=== PATIENT | female | born 1970 | race Caucasian/White ===

== ENCOUNTER 2025-09-11 10:30 | Outpatient (AMB) | payer OTHER, SELFPAY ==
--- NOTE | 2025-09-11 10:32 | A.OFFPC_ITS ---
Vital Signs 09/11/25 10:51 Height 5 ft 3.78 in Weight 220 lb 8 oz BMI 38.1 BP 116/73 Blood Pressure Location Lt brachial Position Sitting Respiration 16 Pulse 71 Pulse Source Pulse Oximeter Temp 98.1 F Temp Source Oral Pulse Oximetry (%) 94 Oxygen Delivery Method Room Air Intake Visit Reasons: Counseling Psychologist/ Diabetes FU Allergies acetaminophen (From NyQuil) Allergy (Mild, Verified 09/11/25 10:53) Hives dextromethorphan (From NyQuil) Allergy (Mild, Verified 09/11/25 10:53) Hives doxylamine (From NyQuil) Allergy (Mild, Verified 09/11/25 10:53) Hives Penicillins Allergy (Mild, Verified 09/11/25 10:53) Swelling pseudoephedrine (From NyQuil) Allergy (Mild, Verified 09/11/25 10:53) Hives Medication List - Last Reconciled 09/11/25 by Leonides Heard MD acetaminophen ER (Tylenol Arthritis Pain) 650 mg PO Q8H atorvastatin (Lipitor) 40 mg PO DAILY benztropine 1.5 mg PO DAILY capsaicin 0.025% 1 appl topical BID cholecalciferol (vitamin D3) 50 mcg PO DAILY diclofenac sodium 1% (Arthritis Pain (diclofenac)) 2 grams topical QID duloxetine 30 mg PO DAILY levothyroxine 112 mcg PO DAILY metformin 1,000 mg PO BID paliperidone palmitate (Invega Sustenna) 234 mg IM QMONTH topiramate XR 50 mg PO BID Tobacco use date assessed: 09/11/25 Dental Screening Dental Screen Date: 09/11/25 Did you have a dental visit in the last 12 months?: Yes Did you have a dental problem in the last 6 months where you did not have access to dental care?: Yes Was dental information given to patient?: No HPI HPI Comments History of Present Illness Details History of Present Illness The patient is a 55-year-old female presenting to establish care and for chronic disease management. Bipolar Disorder: The patient has a history of bipolar disorder for over 10 years and is managed by a psychiatrist. She has been on Invega for 10 years, and the dose was recently increased in July due to a controllable breakdown. She received her first injection of the new dose, paliperidone 156 mg IM extended-release, on August 26. Her benztropine dose was also increased to manage side effects of muscle issues and imbalance from the higher Invega dose. Type 2 Diabetes Mellitus: The patient has a history of type 2 diabetes mellitus and impaired glucose tolerance. She is taking metformin 500 mg extended release. Her last lab work w as done two months ago, but her last hemoglobin A1c is unknown. Hypothyroidism: The patient has a history of hypothyroidism and is treated with levothyroxine 100 mcg. Chronic Pain: The patient has chronic pain, including bilateral knee pain and low back pain. She is managed with acetaminophen, duloxetine 30 mg, capsaicin topical cream, and a lidocaine topical patch. Forgetfulness: The patient reports developing forgetfulness starting about three months ago. She is aware of her memory issues, which is noted as a good prognostic sign. This symptom onset coincides with recent changes in her psychiatric medications. Gastrointestinal Issues: She experiences occasional constipation, which is managed with Miralax as needed. She also takes Metamucil. Urinary Incontinence: The patient reports having a weak bladder and urinary incontinence. Medications: - Acetaminophen 1000 mg every 8 hours - Atorvastatin 40 mg - Benztropine 1 mg - Capsaicin topical cream - Cholecalciferol 50 mcg for Vitamin D d eficiency - Duloxetine 30 mg - Paliperidone (Invega) 156 mg intramusc ular suspension, extended release, for bipolar disorder - Levothyroxine 100 mcg for hypothyroidi sm - Lidocaine topical patch - Losartan 25 mg - Metformin 500 mg extended release for type 2 diabetes mellitus - Miralax (as needed for constipation) - Metamucil - Topiramate 50 mg oral Social History: - Substance Use: The patient reports smo eamon cannabis. - She denies any use of other illicit [place] bstances such as crack, cocaine, or PCP. - Sexual History: The patient is not sex ually active. - Living Situation: The patient resides with her daughter, who serves as her primary caregiver and advocate during medical visits. - They reside in the [facility]. Diagnostic Results: - Mammogram: Performed in June, with n ormal results. - Colonoscopy: Last performed in 2018. - Labs: Last performed approximately two months ago in July; specific results were not discussed. Past Medical History - Bipolar disorder, diagnosed over 10 ye ars ago - Chronic kidney disease - Type 2 diabetes mellitus - Hypothyroidism - Impaired glucose tolerance - Chronic bilateral knee pain - Chronic low back pain - Celiac disease - Obesity - Urinary incontinence - Vitamin D deficiency - Menopause: Last menstrual period was f our years ago. Health Maintenance - Cervical cancer screening: A Pap smear is due as the last one was of an unknown date. - Colon cancer screening: Last colonosco py was in 2019. - Breast cancer screening: Last mammogra m was in June, with normal results. - Sexually transmitted infections: Julia garcia was offered but declined as the patient is not sexually active. [facility] Medical History (Updated 09/11/25 @ 11:47 by Leonides Heard MD) Chronic kidney disease Celiac disease Vitamin D3 deficiency Menopause Cannabis use disorder Urinary incontinence Schizophrenia Bipolar 1 disorder Constipation Forgetfulness Bilateral knee pain Chronic lower back pain Hypothyroidism (acquired) Diabetes type 2 Family History (Updated 09/11/25 @ 11:05 by Frandy Wick MA) Father High blood pressure Diabetes Alzheimer disease Hypothyroidism Heart problem Mother High blood pressure Diabetes Alzheimer disease Social History Housing: House Patient Tobacco Use Status: Never used Tobacco service: No Current occupational status: retired Cognitive needs: Yes Hearing needs: No Vision needs: Yes (rx glasses) Questionnaire PHQ-9 Over the last 2 weeks, how often have you been bothered by any of the following problems? 1. Little interest or pleasure in doing things: not at all 2. Feeling down, depressed, or hopeless: not at all 3. Trouble falling or staying asleep, or sleeping too much: not at all 4. Feeling tired or having little energy: not at all 5. Poor appetite or overeating: not at all 6. Feeling bad about yourself - or that you are a failure or have let yourself or your family down: not at all 7. Trouble concentrating on things, such as reading the newspaper or watching television: not at all 8. Moving or speaking so slowly that other people could have noticed. Or the opposite - being so fidgety or restless that you have been moving around a lot more than usual: not at all 9. Thoughts that you would be better off or of hurting yourself in some way: not at all Total score: 0 Depression Screening Interpretation: Negative Depression Screening Done: Yes Source: Developed by Drs. Saul Davalos, Julissa Foster, Mike Alatorre and colleagues, with an educational yoel from [employer]. Thrive Questionnaire Date Thrive assessed: 09/11/25 I am a: Patient What is your living situation today?: I have a steady place to live Do you have trouble paying for medicines?: No Do you have trouble getting transportation to medical appointments?: No Do you have trouble paying your heating and electricity bill?: No Do you have trouble taking care of your child, family member or friend?: No Do you have trouble with day-to-day activities such as bathing, preparing meals, shopping, managing finances, etc.?: No Are you currently unemployed and looking for a job?: No Are you interested in more education?: No Please select the resources that you would like help with: None THRIVE Score: 0 AUDIT C Alcohol Use Questionnaire (AUDIT-C) 1. How often do you have a drink containing alcohol?: Never Total Score: 0 RICHMOND-7 AMB Questionnaire RICHMOND-7 Date RICHMOND - 7 assessed: 09/11/25 Feeling nervous, anxious, or on edge: 0 = Not at all Not being able to stop or control worryin = Not at all Worrying too much about different things: 0 = Not at all Trouble relaxin = Not at all Being so restless that it is hard to sit still: 0 = Not at all Becoming easily annoyed or irritable: 0 = Not at all Feeling afraid as if something awful might happen: 0 = Not at all Total RICHMOND-7 score (0-4 normal; 5-9 mild; 10-14 moderate; 15-21 severe): 0 Source: Developed by Drs. Saul Davalos, Mike Pan and colleagues, with an educational yoel from [employer]. Review of Systems Narrative Review of Systems - Constitutional: Reports sedation and sleepiness, attributed to medications. - Neurological: Reports forgetfulness that began three months ago and unsteadiness. - Psychiatric: Reports history of a psychiatric breakdown. - Musculoskeletal: Reports bilateral knee pain and low back pain. - Genitourinary: Reports a weak bladder and urinary incontinence. - Gynecological: Reports amenorrhea for the past 4 years. - Gastrointestinal: Reports intermittent constipation. 10-point ROS reviewed and negative except as noted in HPI Physical exam (Primary Care) Vital Signs: Last Vital Signs Temp 98.1 F 09/11/25 10:51 Pulse 71 09/11/25 10:51 Resp 16 09/11/25 10:51 BP 116/73 09/11/25 10:51 Pulse Ox 94 09/11/25 10:51 Oxygen Delivery Method Room Air 09/11/25 10:51 BMI result Body Mass Index 38.1 Tobacco/Smoking Status: Tobacco use Status Tobacco use date assessed 09/11/25 09/11/25 10:37 Patient Tobacco Use Status Never used Tobacco 09/11/25 10:37 PHQ-9: PHQ-9 Score PHQ-9: Total score 0 09/11/25 10:37 Depression Screening Interpretation: Negative Thrive Assessment: Date of Thrive Assessment Date Thrive assessed 09/11/25 09/11/25 10:37 Narrative Physical Exam General: Well-appearing, in no acute distress. Vital signs: Within normal limits. HEENT: Normocephalic, atraumatic. PERRLA, EOMI. Conjunctiva clear, sclera anicteric. Oropharynx clear, mucous membranes moist. TMs intact bilaterally. Neck: Supple, no lymphadenopathy, no thyromegaly, no JVD or carotid bruits. Cardiovascular: RRR, normal S1/S2, no murmurs, rubs, or gallops. Peripheral pulses 2+ and symmetric. No edema. Respiratory: Lungs clear to auscultation bilaterally, no wheezes, rales, or rhonchi. Normal effort. Abdomen: Soft, non-tender, non-distended. Normoactive bowel sounds. No hepatosplenomegaly, no masses. MSK: Full range of motion, no joint swelling or deformity. Normal gait. Skin: Warm, dry, intact. No rashes, lesions, or pallor. Neuro: Alert and oriented x3. Cranial nerves II-XII intact. Strength 5/5 throughout. Sensation intact. Reflexes 2+ symmetric. Normal coordination and gait. Psych: Appropriate mood and affect. Normal judgment and insight. Coding Level of Care Code New Pt Level 4 (77898) Diagnoses Diabetes type 2 E11.9 Hypothyroidism (acquired) E03.9 Chronic lower back pain M54.50; G89.29 Bilateral knee pain M25.561; M25.562 Forgetfulness R68.89 Constipation K59.00 Bipolar 1 disorder F31.9 Schizophrenia F20.9 Urinary incontinence R32 Cannabis use disorder F12.90 Menopause Z78.0 Vitamin D3 deficiency E55.9 Celiac disease K90.0 Chronic kidney disease N18.9 Assessment & Plan Assessment & Plan (1) Diabetes type 2: Code(s): E11.9 - Type 2 diabetes mellitus without complications Category: Medical (2) Hypothyroidism (acquired): Code(s): E03.9 - Hypothyroidism, unspecified Category: Medical (3) Chronic lower back pain: Code(s): M54.50 - Low back pain, unspecified; G89.29 - Other chronic pain Category: Medical (4) Bilateral knee pain: Code(s): M25.561 - Pain in right knee; M25.562 - Pain in left knee Category: Medical (5) Forgetfulness: Code(s): R68.89 - Other general symptoms and signs Category: Medical (6) Constipation: Code(s): K59.00 - Constipation, unspecified Category: Medical (7) Bipolar 1 disorder: Code(s): F31.9 - Bipolar disorder, unspecified Category: Medical (8) Schizophrenia: Code(s): F20.9 - Schizophrenia, unspecified Category: Medical (9) Urinary incontinence: Code(s): R32 - Unspecified urinary incontinence Category: Medical (10) Cannabis use disorder: Code(s): F12.90 - Cannabis use, unspecified, uncomplicated Category: Medical (11) Menopause: Code(s): Z78.0 - Asymptomatic menopausal state Category: Medical (12) Vitamin D3 deficiency: Code(s): E55.9 - Vitamin D deficiency, unspecified Category: Medical (13) Celiac disease: Code(s): K90.0 - Celiac disease Category: Medical (14) Chronic kidney disease: Code(s): N18.9 - Chronic kidney disease, unspecified Category: Medical Plan Consent The plan to perform comprehensive bloodwork was discussed with the patient and her daughter, who acted as her historian. They verbally agreed to proceed with the diagnostic testing. Patient was informed and verbally consented to the use of an ambient scribe for clinic note documentation during this visit. Plan 1. Establishment Of Care / Chronic Disease Management - Obtain a comprehensive panel of labs to establish a baseline, including a complete blood count, comprehensive metabolic panel, urinalysis, thyroid panel, hemoglobin A1c, lipid panel, vitamin B12, folate, and vitamin D. - Schedule a follow-up appointment in two weeks to review lab results and formulate a long-term management plan. 2. Forgetfulness - The symptom is currently attributed to recent psychiatric medication changes. - Ordered lab work includes thyroid function tests and vitamin levels to rule out organic causes. - Defer further neurological workup at this time, pending lab results and a period of observation for medication adjustment. 3. Cervical Cancer Screening - Plan to arrange for a Pap smear as the patient is overdue for screening. Discussion Notes I discussed with the patient and her daughter, who served as the primary historian for the visit, that the initial goal is to establish a comprehensive understanding of her current health status. I explained the rationale for ordering a full panel of blood tests and a urinalysis, which will help assess her kidney and liver function, diabetes control, thyroid status, cholesterol levels, and check for any vitamin deficiencies. We addressed her concern about forgetfulness, and I explained that it is likely a side effect of her recent psychiatric medication changes. I advised that we should first rule out other reversible causes with the ordered labs before considering further workup, and that it's good she is aware of the issue. I also highlighted the need for health maintenance, specifically a Pap smear for cervical cancer screening, as she is overdue. I recommended a follow-up visit in two weeks to review all of the results and develop a clear plan moving forward. Patient Instructions - Please go to the lab to have your blood drawn for the tests we discussed. - We need to schedule a Pap smear for your routine cancer screening. - Continue taking all your current medications as prescribed by your other doctors. - Please return to the clinic in two weeks to discuss your lab results and next steps. Medical Decision Making The patient is a 55-year-old female with a complex past medical history including bipolar disorder, type 2 diabetes, hypothyroidism, chronic kidney disease, and chronic pain, who presents with her daughter to establish care. The history was provided primarily by her daughter due to the patient's sedation, which is likely a side effect of a recent increase in her Invega dose for bipolar disorder. Given that this is an initial visit for a patient with multiple, actively managed chronic conditions, a comprehensive baseline assessment is crucial. A broad panel of labs was ordered to evaluate the status of her known conditions (HgbA1c, CMP, thyroid panel) and to screen for potential complications or contributing factors to her new symptom of forgetfulness (CBC, vitamin levels). The patient's new onset of forgetfulness over the last three months is most likely attributable to the recent titration of her psychotropic medications, particularly Invega. However, it is important to rule out common organic causes such as hypothyroidism or vitamin deficiencies before attributing it solely to medication effects. Therefore, a watchful waiting approach combined with laboratory investigation is appropriate at this time. Preventative care was also addressed, and a Pap smear is indicated as she is overdue for cervical cancer screening. The plan is to follow up in two weeks to review all results, which will guide further diagnostic and therapeutic decisions. Total time spent caring for the patient today was 30 minutes. This includes time spent before the visit reviewing the chart, time spent documenting, and time spent reviewing laboratory results, diagnostic imaging, medications, performing a medically necessary evaluation, counseling on diagnoses, care coordination Orders: Orders Comprehensive Met. Panel Today Z.9 - Encounter for screening, unspecified Hemoglobin A1c Today Z13.9 - Encounter for screening, unspecified HIV Ab/Ag Today Z13.9 - Encounter for screening, unspecified Vitamin D 1,25 dihydroxy Today Z13.9 - Encounter for screening, unspecified Complete Blood Count Auto Diff Today Z13.9 - Encounter for screening, unspecified Hepatitis B Surface Antibody Today Z13.9 - Encounter for screening, unspecified Hepatitis B Surface Antigen Today Z13.9 - Encounter for screening, unspecified Hepatitis C Antibody Today Z13.9 - Encounter for screening, unspecified Lipid Panel Today Z13.9 - Encounter for screening, unspecified Magnesium Today Z13.9 - Encounter for screening, unspecified Vitamin B12 and Folate Today Z13.9 - Encounter for screening, unspecified UA CC w/rflx Micro + Cult Today Z13.9 - Encounter for screening, unspecified TSH reflex Free T4 Today Z13.9 - Encounter for screening, unspecified
[2025-09-11 10:51] VITALS: BP 116/73; PULSE 71; RESP 16; TEMP 36.7; O2SAT 94; BMI 38.1
== END 2025-09-11 11:07 | disposition home or self-care (01) ==
LOC: HO.HMCFMS 10:30
PROVIDERS: Visit Provider Student in an Organized Health Care Education/Training Program
DX: E11.9 Type 2 diabetes mellitus without complications (principal); E03.9 Hypothyroidism, unspecified; M54.50 Low back pain, unspecified; G89.29 Other chronic pain; M25.561 Pain in right knee; M25.562 Pain in left knee; R68.89 Other general symptoms and signs; K59.00 Constipation, unspecified; F31.9 Bipolar disorder, unspecified; F20.9 Schizophrenia, unspecified; R32 Unspecified urinary incontinence; F12.90 Cannabis use, unspecified, uncomplicated; Z78.0 Asymptomatic menopausal state; E55.9 Vitamin D deficiency, unspecified; K90.0 Celiac disease; N18.9 Chronic kidney disease, unspecified

== ENCOUNTER → 2025-09-11 10:30 | Outpatient (BNVA) | payer OTHER, SELFPAY | PROVIDERS: Visit Provider Student in an Organized Health Care Education/Training Program | DX: E11.22 Type 2 diabetes mellitus with diabetic chronic kidney disease (principal); N18.9 Chronic kidney disease, unspecified; F31.9 Bipolar disorder, unspecified; E03.9 Hypothyroidism, unspecified; M25.561 Pain in right knee; M25.562 Pain in left knee; M54.50 Low back pain, unspecified; R32 Unspecified urinary incontinence; F12.90 Cannabis use, unspecified, uncomplicated; R68.89 Other general symptoms and signs; K59.00 Constipation, unspecified; F20.9 Schizophrenia, unspecified; Z78.0 Asymptomatic menopausal state; E55.9 Vitamin D deficiency, unspecified; K90.0 Celiac disease | CPT/HCPCS: 96127; 99202 ==

== ENCOUNTER 2025-09-12 09:16 | Outpatient (REF) | payer OTHER, SELFPAY ==
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
[2025-09-12 13:33] LABS: MANUAL DIFF FLAG NO
[2025-09-12 13:44] LABS: Hematocrit 41.6 % (37.0-47.0); Hemoglobin 13.4 g/dl (12.0-16.0); Imm Gran Abs Auto 0.04 X10*3/uL (0.00-0.03); Imm Gran Pct Auto 0.4 % (0.0-0.4); Lymphocytes Absolute Auto 3.4 X10*3/uL (1.2-4.9); Mean Corpuscular HGB Conc 32.2 g/dl (31.0-35.0); Mean Corpuscular Hemoglobin 30.1 pg (27.0-33.0); Mean Corpuscular Volume 93.5 fL (80.0-98.0); NRBC Abs Auto 0.000 X10*3/uL (0.0-0.012); NRBC Pct Auto 0.0 /100WBC (0.0-0.2); Platelet Count 287 X10*3/uL (160-400); Red Blood Count 4.45 X10*6/uL (4.20-5.50); White Blood Count 9.6 X10*3/uL (4.8-10.8)
[2025-09-12 14:19] LABS: Alanine Aminotransferase 23 U/L (0-31); Albumin Level 4.2 g/dL (3.5-5.0); Alkaline Phosphatase 75 U/L (39-117); Anion Gap 7 (12-20); Aspartate Amino Transferase 26 U/L (5-31); Blood Urea Nitrogen 18 mg/dL (9-16); Calcium 9.3 mg/dL (8.4-10.2); Carbon Dioxide 27 mmol/L (22-29); Chloride 113 mmol/L (96-108); Cholesterol 149 mg/dL (<200); Estimated Glomerular Filt Rate 53; HDL Cholesterol 36 mg/dL (>40); Magnesium 1.8 mg/dL (1.6-2.6); Potassium 3.9 mmol/L (3.3-5.1); Sodium 143 mmol/L (135-145); Total Protein 7.2 g/dL (6.5-8.0); Triglycerides 106 mg/dL (<150)
[2025-09-12 14:32] LABS: Folate 6.2 ng/mL (> or = 4.0); Vitamin B12 306 pg/mL (200-900)
[2025-09-13 08:12] LABS: HBS Num1 17.52 mIU/mL (0-7.99); HBsAGNum1 0.41 S/CO (0.00-0.99); HIV Num 1 0.10 S/CO (0.00-0.99); Hepatitis B Surface Antigen Negative (Negative); ~HepC Num1 0.07 S/CO (0.00-0.79); ~Hepatitis B Surface Antibody REACTIVE (Nonreactive); ~Hepatitis C Antibody Nonreactive (Nonreactive)
[2025-09-17 15:24] LABS: VITAMIN D (1,25 OH) D3 33 pg/mL; Vit D (1,25-Dihydroxy) Total 33 pg/mL (18-72); Vitamin D (1,25 OH) D2 <8 pg/mL
== END 2025-09-12 09:17 | disposition home or self-care (01) ==
LOC: HO.HKASLDS 09:16
PROVIDERS: PCP Student in an Organized Health Care Education/Training Program; Visit Provider Student in an Organized Health Care Education/Training Program
DX: Z11.4 Encounter for screening for human immunodeficiency virus [HIV] (principal); Z13.29 Encounter for screening for other suspected endocrine disorder; Z13.1 Encounter for screening for diabetes mellitus; Z13.6 Encounter for screening for cardiovascular disorders; Z13.89 Encounter for screening for other disorder
CPT/HCPCS: 36415; 80053; 80061; 82607; 82652; 82746; 83036; 83735; 84443; 85025; 86706; 86803; 87340; 87389

== ENCOUNTER 2025-09-26 09:56 | Outpatient (AMB) | payer OTHER, SELFPAY ==
[2025-09-26 10:05] VITALS: BP 130/70; PULSE 86; RESP 16; TEMP 36.6; BMI 38.3
--- NOTE | 2025-09-26 10:05 | MHC.PC.OV ---
Vital Signs 09/26/25 10:05 Height 5 ft 3.78 in Weight 221 lb 8 oz BMI 38.3 BP 130/70 Blood Pressure Location Rt brachial Position Sitting Respiration 16 Pulse 86 Temp 97.8 F Temp Source Oral Intake Visit Reasons: 2 wk f/u - lab review Allergies acetaminophen (From NyQuil) Allergy (Mild, Verified 09/26/25 10:06) Hives dextromethorphan (From NyQuil) Allergy (Mild, Verified 09/26/25 10:06) Hives doxylamine (From NyQuil) Allergy (Mild, Verified 09/26/25 10:06) Hives Penicillins Allergy (Mild, Verified 09/26/25 10:06) Swelling pseudoephedrine (From NyQuil) Allergy (Mild, Verified 09/26/25 10:06) Hives Tobacco use date assessed: 09/11/25 Dental Screening Dental Screen Date: 09/11/25 HPI HPI Comments History of Present Illness Details History of Present Illness The patient is a 55-year-old female presenting for a review of lab results and evaluation of a new-onset burning sensation in the left leg. Peripheral Neuropathy: The patient reports a burning sensation in her left knee and leg that started approximately one week ago. The sensation is painful with light touch, such as from paper or fingers, but does not hurt with deeper pressure. She denies any changes in her daily activities that could have precipitated this symptom. Prediabetes: The patient is on metformin 1000 mg twice a day. Her recent hemoglobin A1c was 5.9%, placing her in the prediabetic range. Schizophrenia: The patient has a history of schizophrenia and is managed by a psychiatrist named Sue. She has been on Invega since 2008, and the dose was recently increased. She also takes benztropine for extrapyramidal symptoms associated with her antipsychotic medication. She reportedly experiences drowsiness as a side effect. Migraine: The patient experienced stress-induced migraines around August of this year following the passing of her mother. Her psychiatrist prescribed topiramate, which she started in August for migraine prophylaxis. She is reportedly no longer experiencing migraines. Chronic Kidney Disease, Stage Unspecified: Recent lab results indicate that the patient's kidneys are functioning at a slightly slow rate. Surgical History: - No prior surgeries were mentioned in the conversation. Medications: - Acetaminophen ER for arthritis pain - Atorvastatin 40 mg for hyperlipidemia - Benztropine 1.5 mg for extrapyramidal symptoms - Vitamin D supplementation - Diclofenac for arthritis pain - Duloxetine - Levothyroxine - Metformin 1000 mg twice a day for prediabetes - Invega (paliperidone) for schizophrenia - Topiramate XR 50 mg for migraine prevention Social History: - The patient's mother in July/August of this year, which was identified as a significant recent stressor. - The patient's daughter accompanied her to the appointment. - The patient expressed a desire to donate plasma for financial reasons. - Regarding nutrition, the patient reports eating a lot of chicken and uses an air fryer. Family History: - Mother: Diagnostic Results: - CBC: White blood cells, red blood cells, hemoglobin, hematocrit, and platelets are normal. - Comprehensive Metabolic Panel: Sodium and potassium are normal. Kidney function is noted to be slightly slow. Liver function and magnesium levels are normal. - Glucose, Random: 104 mg/dL - Hemoglobin A1c: 5.9% - Lipid Panel: Triglycerides 106 mg/dL, total cholesterol 149 mg/dL, LDL 92 mg/dL, HDL 36 mg/dL. - Vitamin B12: Normal - Vitamin D: Normal - Folate: Normal - Thyroid function tests: Normal - Hepatitis B, Hepatitis C, and HIV screens: Negative Past Medical History - Schizophrenia, managed with Invega since 2008 - Prediabetes, managed with metformin - Hyperlipidemia, managed with atorvastatin - Hypothyroidism, managed with levothyroxine - Arthritis, managed with acetaminophen and diclofenac - History of stress-induced migraines Health Maintenance - Lab Monitoring: Comprehensive labs were reviewed, showing prediabetes, mildly reduced kidney function, and mixed hyperlipidemia with low HDL. - Dietary Counseling: Advised to reduce carbohydrate intake (e.g., white rice, bread, cookies) and increase consumption of greens, beans, and lean proteins to manage prediabetes and improve HDL cholesterol. - Medication Safety: Counseled to avoid nephrotoxic NSAIDs (e.g., ibuprofen, meloxicam) due to mildly slow kidney function and to use Tylenol for pain as a safer alternative. - Risk Reduction: Patient was cleared to donate plasma if she chooses to do so. [facility] Medical History (Updated 09/26/25 @ 11:02 by Leonides Heard MD) Migraine Peripheral neuropathy Chronic kidney disease Celiac disease Vitamin D3 deficiency Menopause Cannabis use disorder Urinary incontinence Schizophrenia Bipolar 1 disorder Constipation Forgetfulness Bilateral knee pain Chronic lower back pain Hypothyroidism (acquired) Diabetes type 2 Family History (Updated 09/11/25 @ 11:05 by Frandy Wick MA) Father High blood pressure Diabetes Alzheimer disease Hypothyroidism Heart problem Mother High blood pressure Diabetes Alzheimer disease Social History Housing: House Patient Tobacco Use Status: Never used Tobacco service: No Current occupational status: retired Cognitive needs: Yes Hearing needs: No Vision needs: Yes (rx glasses) Questionnaire Thrive Questionnaire Date Thrive assessed: 09/11/25 I am a: Patient What is your living situation today?: I have a steady place to live Within the past 12 months, did the food you bought not last and you didn't have the money to get more?: Never true Within the past 12 months, did you worry whether your food would run out before you got money to buy more?: Never true Do you have trouble paying for medicines?: No Do you have trouble getting transportation to medical appointments?: No Do you have trouble paying your heating and electricity bill?: Yes Do you have trouble taking care of your child, family member or friend?: I choose not to answer this question Are you currently unemployed and looking for a job?: Yes Are you interested in more education?: No Please select the resources that you would like help with: Utilities Currently or been in a relationship where the following occur: No concerns reported THRIVE Score: 1 RICHMOND-7 AMB Questionnaire RICHMOND-7 Date RICHMOND - 7 assessed: 09/11/25 Source: Developed by Drs. Saul Davalos, Julissa Foster, Mike Alatorre and colleagues, with an educational yoel from [employer]. Review of Systems Narrative Review of Systems - Constitutional: Reports feeling drowsy. - Neurological: Reports a burning sensation in the left knee and leg for the past week, which is painful with light touch. Denies forgetfulness today. - Musculoskeletal: Reports arthritis pain. 10-point ROS reviewed and negative except as noted in HPI Physical exam (Primary Care) Vital Signs: Last Vital Signs Temp 97.8 F 09/26/25 10:05 Pulse 86 09/26/25 10:05 Resp 16 09/26/25 10:05 BP 130/70 09/26/25 10:05 BMI result Body Mass Index 38.3 Tobacco/Smoking Status: Tobacco use Status Tobacco use date assessed 09/11/25 09/26/25 10:23 Patient Tobacco Use Status Never used Tobacco 09/26/25 10:23 Thrive Assessment: Date of Thrive Assessment Date Thrive assessed 09/11/25 09/26/25 10:23 Currently or been in a relationship where the following occur: No concerns reported Narrative Physical Exam General: Well-appearing, in no acute distress. Vital signs: Within normal limits. HEENT: Normocephalic, atraumatic. PERRLA, EOMI. Conjunctiva clear, sclera anicteric. Oropharynx clear, mucous membranes moist. TMs intact bilaterally. Neck: Supple, no lymphadenopathy, no thyromegaly, no JVD or carotid bruits. Cardiovascular: RRR, normal S1/S2, no murmurs, rubs, or gallops. Peripheral pulses 2+ and symmetric. No edema. Respiratory: Lungs clear to auscultation bilaterally, no wheezes, rales, or rhonchi. Normal effort. Abdomen: Soft, non-tender, non-distended. Normoactive bowel sounds. No hepatosplenomegaly, no masses. MSK: Full range of motion, no joint swelling or deformity. Normal gait. Skin: Warm, dry, intact. No rashes, lesions, or pallor. Neuro: Alert and oriented x3. Cranial nerves II-XII intact. Strength 5/5 throughout. Sensation intact except for a burning sensation in the left leg, particularly the knee, when touched with paper or fingers. Reflexes 2+ symmetric. Normal coordination and gait. Psych: Appropriate mood and affect. Normal judgment and insight. Taking Invega for schizophrenia. Coding Level of Care Code Est Pt Level 3 (50571) Diagnoses Peripheral neuropathy G62.9 Diabetes type 2 E11.9 Schizophrenia F20.9 Bipolar 1 disorder F31.9 Migraine G43.909 Chronic kidney disease N18.9 Assessment & Plan Assessment & Plan (1) Peripheral neuropathy: Code(s): G62.9 - Polyneuropathy, unspecified Category: Medical (2) Diabetes type 2: Code(s): E11.9 - Type 2 diabetes mellitus without complications Category: Medical (3) Schizophrenia: Code(s): F20.9 - Schizophrenia, unspecified Category: Medical (4) Bipolar 1 disorder: Code(s): F31.9 - Bipolar disorder, unspecified Category: Medical (5) Migraine: Code(s): G43.909 - Migraine, unspecified, not intractable, without status migrainosus Category: Medical (6) Chronic kidney disease: Code(s): N18.9 - Chronic kidney disease, unspecified Category: Medical Plan Consent No discussion of consent was documented in the conversation. Patient was informed and verbally consented to the use of an ambient scribe for clinic note documentation during this visit. Plan 1. Peripheral Neuropathy - The patient's burning leg pain is suspected to be a neuropathy-related side effect of topiramate. - Advised the patient to discuss this new symptom with her psychiatrist, Sue, who prescribed the medication. - A new medication, such as gabapentin, will not be prescribed for the nerve pain to avoid exacerbating the patient's existing drowsiness and to avoid polypharmacy. - Recommended discussing discontinuation of topiramate with her psychiatrist, as her migraines have resolved. 2. Prediabetes - Continue metformin 1000 mg twice daily. - Counseled on dietary changes, including reducing carbohydrate intake such as white rice, bread, and cookies. - Monitor HbA1c to assess for progression to diabetes. 3. Chronic Kidney Disease, Stage Unspecified - Advised patient to maintain adequate hydration with water. - Instructed to avoid nephrotoxic medications, such as ibuprofen and meloxicam. - Tylenol is recommended as a safer alternative for pain management. 4. Mixed Hyperlipidemia - Continue atorvastatin 40 mg. - Recommended dietary modifications to increase HDL, including cutting down on carbohydrates and increasing intake of greens, beans, and lean protein like grilled chicken breast. Discussion Notes I reviewed the patient's recent lab results with her and her daughter. We discussed her new complaint of a burning sensation in her left leg, which began about a week ago. I explained that this symptom is likely a peripheral neuropathy, a known side effect of topiramate, which she started recently for migraines. I advised her to speak with her psychiatrist, who manages her psychotropic medications, about this side effect, as I am not managing her psychiatric care. I informed her that I would not be prescribing a new medication like gabapentin for the pain because it could worsen her existing drowsiness from other medications. We also reviewed her prediabetes status, mildly slow kidney function, and cholesterol levels, for which I provided counseling on dietary modifications and avoiding NSAIDs like ibuprofen. I requested a urine sample for further evaluation. Patient Instructions - Contact your psychiatrist, Sue, to discuss the burning feeling in your left leg, as it may be a side effect of the topiramate medication. - Continue taking your current medications as prescribed, including metformin for prediabetes. - To help with your blood sugar and cholesterol, try to reduce your intake of carbohydrates like white rice, white bread, and cookies. - Increase your intake of green vegetables, beans, and lean protein like grilled chicken. - Drink plenty of water to help your kidneys. - Avoid taking pain medications like ibuprofen (Advil, Motrin) or meloxicam because they can be hard on your kidneys. You may use Tylenol (acetaminophen) for pain if needed. - It is okay for you to donate plasma. - Please provide a urine sample before you leave the office today. Medical Decision Making The patient is a 55-year-old female with a complex medical history including schizophrenia on a polypharmacy regimen, who presented for lab review and a new complaint of a burning sensation in her left leg. The new symptom, consistent with allodynia, began one week ago and is highly suspicious for a medication-induced peripheral neuropathy secondary to topiramate, which was initiated in August for stress-related migraines that have since resolved. Given that her psychiatric care is managed by her psychiatrist, the plan is for the patient to address this likely adverse drug reaction with the prescribing provider. I have deferred adding another medication, such as gabapentin, to avoid exacerbating her baseline drowsiness from Invega and contributing to polypharmacy. Review of laboratory results revealed an HbA1c of 5.9% (prediabetes) despite treatment with metformin 1000 mg BID, as well as mildly impaired renal function and mixed hyperlipidemia with a low HDL. The patient was counseled on lifestyle modifications, including a low-carbohydrate diet to address her glycemic control and dyslipidemia, and avoidance of nephrotoxic agents like NSAIDs to preserve renal function. Total Time Statement 20min Total time spent caring for the patient today includes pre-visit chart review, documentation, review of laboratory and diagnostic imaging results, medication reconciliation, medically necessary evaluation, counseling on diagnoses, care coordination, ordering appropriate tests and medications, review of tests performed by other providers, reporting test results to the patient, and communication with other healthcare providers.
--- OUTSIDE RECORDS SUMMARY | 2025-09-26 18:39 | XMS_ITS | Clinical Summary ---
Author Organization [facility] Address [address] [place] [address] Phone Care Team Providers Care Make Up Man Name Role Phone Physician, Pcp Unknown Primary Care Provider Clara vailable Allergies Active Allergy Reactions Criticality Noted Date Comments Penicillins Rash 05/08/2013 Encounters Date Type Department Care Team Description 07/27/2025 10:10 PM EDT - 2025 12:17 AM EDT Emergency [facility] Emergency [address] [place] [address] Tension-type headache, not intractable, unspecified chronicity pattern (Primary Dx); Elevated blood pressure reading in office without diagnosis of hypertension; Nausea Discharge Disposition: Home or Self Care from Last 3 Months Surgical History Surgery Date Site/Laterality Comments TUBAL LIGATION PROCEDURE: HISTORICAL TUBAL LIGATION Medical History Medical History Date Comments Hypothyroidism DX:Hypothyroidis m Gestational diabetes DX:Gestatio nal diabetes Bipolar affective psychosis ([facility] V24, [facility] V28) 01/17/2013 DX:Bipolar affective psychos is (HCC) Substance abuse ([facility] V24 , [facility] V28) 02/13/2015 DX:Substance abuse (HCC) Family History [...] Sugar Control Test (HGBA1C) 06/13/2025 COVID-19 Vaccine ( season) 2025 02/21/2021 Influenza Vaccine (#1) 2025 3, 12/23/2020, 11/18/2017, Additional history exists Diabetes: Annual [...] AND DIFFERENTIAL STAT 07/27/2025 7:19 PM EDT [id number], RSV, FLU A AND B QUALITATIVE RT-PCR, INTERNAL LAB STAT 07/27/2025 6:55 PM EDT from Last 3 Months Results * (ABNORMAL) CBC auto differential (07/27/2025 7:19 PM EDT) WBC 11.2(H) 4.8 - 10.8 K/[facility] LAB HEMETOLOGY METHOD 07/27/2025 7:55 PM EDT [facility] RBC 4.00 3.80 - 4.80 M/mcL LAB HEMETOLOGY METHOD 07/27/2025 7:55 PM EDT [facility] Hemoglobin 12.1 11.5 - 16.0 g/dL LAB HEMETOLOGY METHOD 07/27/2025 7[facility] Hematocrit 37.7 35.0 - 47.0 % LAB HEMETOLOGY METHOD 07/27/2025 7:55 PM EDT [facility] MCV 93.3 79.0 - 98.0 FL LAB HEMETOLOGY METHOD 07/27/2025 7:[address] [facility] MCH 30.0 27.0 - 32.0 pcg LAB HEMETOLOGY METHOD 07/27/2025 7:[address] [facility] MCHC 32.1 32.0 - 37.0 g/dL LAB HEMETOLOGY METHOD 07/27/2025 7:55 PM EDT [facility] RDW 13.8 11.0 - 15.0 % LAB HEMETOLOGY METHOD 07/27/2025 7:55 PM T [facility] Platelets 340 130 - 400 K/mcL LAB HEMETOLOGY METHOD 07/27/2025 7:[address] [facility] MPV 9.9 7.0 - 11.0 FL LAB HEMETOLOGY METHOD 07/27/2025 7:[facility] NRBC 0.0 <1.0 % LAB HEMETOLOGY METHOD 07/27/2025 7:[facility] NRBC Absolute 0.00 <0.10 K/mcL LAB HEMETOLOGY METHOD 07/27/2025 7:55 [facility] Neutrophils Relative 57.4 % LAB HEMETOLOGY METHOD 07/27/2025 7:55 PM EDT [facility] Lymphocytes Relative 32.8 % LAB HEMETOLOGY METHOD 07/27/2025 7:55 PM EDT [facility] Monocytes Relative 6.6 % LAB HEMETOLOGY METHOD 07/27/2025 7:55 PM EDT [facility] Eosinophils Relative 2.2 % LAB HEMETOLOGY METHOD 07/27/2025 7:[address] [facility] Basophils Relative 0.6 % LAB HEMETOLOGY METHOD 07/27/2025 7:55 PM EDT [facility] Immature Granulocytes Relative 0.4 % LAB HEMETOLOGY METHOD 07/27/2025 7:55 PM EDT [facility] Neutrophils Absolute 6.42 1.50 - 7.00 K/mcL LAB HEMETOLOGY METHOD 07/27/2025 7:[address] [facility] Lymphocytes Absolute 3.67 1.00 - 5.00 K/mcL LAB HEMETOLOGY METHOD 07/27/2025 7:55 PM EDT [facility] Monocytes Absolute 0.74 0.20 - 1.00 K/mcL LAB HEMETOLOGY METHOD 07/27/2025 7:[address] [facility] Eosinophils Absolute 0.25 0.00 - 0.50 K/mcL LAB HEMETOLOGY METHOD 07/27/2025 7:[address] [facility] Basophils Absolute 0.07 0.00 - 0.20 K/mcL LAB HEMETOLOGY METHOD 07/27/2025 7:[address] [facility] Immature Granulocytes Absolute 0.05(H) 0.00 - 0.03 K/mcL LAB HEMETOLOGY METHOD 07/27/2025 7:[address] [facility] Blood Venous blood specimen / Unknown Venipuncture / Unknown 07/27/2025 7:19 PM EDT 07/27/2025 7:47 PM EDT us Govind Mauricio MD LAB BLOOD ORDERABLES Fin al Result Performing Organization Address [facility] Co de Phone Number [facility] [address] [place] [address], [place] [phone] * (ABNORMAL) Magnesium (07/27/2025 7:19 PM EDT) Pathologist [facility] Magnesium 1.7(L) 1.9 - 2.6 mg/dL LAB CHEMISTRY METHOD 07/27/2025 8:12 PM EDT [facility] Blood Venous blood specimen / Unknown Venipuncture / Unknown 07/27/2025 7:19 PM EDT 07/27/2025 7:47 PM EDT Govind Mauricio MD LAB BLOOD ORDERABLES Fin al Result Performing Organization Address [facility] de Phone Number [facility] [address] [place] [address], [place] [phone] * Lipase (07/27/2025 7:19 PM EDT) [facility] Lipase 30 13 - 75 unit/L LAB CHEMISTRY METHOD 07/27/2025 8:12 PM EDT [facility] Blood Venous blood specimen / Unknown Venipuncture / Unknown 07/27/2025 7:19 PM EDT 07/27/2025 7:47 PM EDT Govind Mauricio MD LAB BLOOD ORDERABLES Fin al Result Performing Organization Address [facility] Co de Phone Number [facility] [address] [place] [address], [place] [phone] * (ABNORMAL) Comprehensive metabolic panel (07/27/2025 7:19 PM EDT) Pathologist [facility] Sodium 139 133 - 145 mmol/L LAB CHEMISTRY METHOD 07/27/2025 8:12 PM EDT [facility] Potassium 4.2 3.5 - 5.5 mmol/L LAB CHEMISTRY METHOD 07/27/2025 8:[address] [facility] Chloride 105 96 - 110 mmol/L LAB CHEMISTRY METHOD 07/27/2025 8:[address] [facility] CO2 29 21 - 32 mmol/L LAB CHEMISTRY METHOD 07/27/2025 8:[address] [facility] Anion Gap 5 3 - [...] g/dL LAB CHEMISTRY METHOD 07/27/2025 8:12 PM EDT [facility] Albumin 3.3 3.2 - 5.0 g/dL LAB CHEMISTRY METHOD 07/27/2025 8:12 PM EDT [facility] Total Bilirubin 0.3 0.0 - 1.4 mg/dL LAB CHEMISTRY METHOD 07/27/2025 8:12 PM EDT [facility] Blood Venous blood specimen / Unknown Venipuncture / Unknown 07/27/2025 7:19 PM EDT 07/27/2025 7:47 PM EDT Govind Mauricio MD LAB BLOOD ORDERABLES Fin al Result [facility] [address] [place] [address], * [id number], RSV, Influenza A and B qualitative RT-PCR (07/27/2025 6:55 PM EDT) Influenza A PCR Not Detected Not Detected LAB MICROBIOLOGY METHOD 07/27/2025 7:56 PM EDT [facility] Influenza B PCR Not Detected Not Detected LAB MICROBIOLOGY METHOD 07/27/2025 7:56 PM EDT [facility] RSV PCR Not Detected Not Detected LAB MICROBIOLOGY METHOD 07/27/2025 7:56 PM EDT [facility] SARS COV-2 Not Detected Not Detected LAB MICROBIOLOGY METHOD 07/27/2025 7:56 PM EDT [facility] Swab Both anterior nares / Unknown Non-blood Collection / Unknown 07/27/2025 6:55 PM EDT 07/27/2025 7:15 PM EDT Narrative [facility] - 07/27/2025 7:56 PM EDT Disclaimer: Testing was performed using the Cepheid GeneXpert Xpress SARS-CoV-2 _Flu_RSV PLUS PCR assay. [...] for Healthcare providers can be found at https://www.fda.gov/media/187429/download. Fact sheet for Healthcare patients can be found at https://www.fda.gov/media/609603/download. Govind Mauricio MD LAB MICROBIOLOGY - GENER AL ORDERABLES Final Result [facility] [address] [place] [address], from Last 3 Months Insurance [facility] Member Subscriber Plan / Payer (Ef fective 2016-Present) Name:VITA LOJA Relation to Subscriber:Self Name:Vita Loja Payer ID:[id number] Group ID:[id number] Type:Not on file Address: [place] [address] [address] [id number] Care Teams Make Up Man Relationship Specialty Start Date End Date Physician, Pcp Unknown PCP - General 07/27/25
== END 2025-09-26 10:48 | disposition home or self-care (01) ==
LOC: HO.HMCFMS 09:56
PROVIDERS: PCP Student in an Organized Health Care Education/Training Program; Visit Provider Student in an Organized Health Care Education/Training Program
DX: G62.9 Polyneuropathy, unspecified (principal); E11.42 Type 2 diabetes mellitus with diabetic polyneuropathy; F20.9 Schizophrenia, unspecified; F31.9 Bipolar disorder, unspecified; G43.909 Migraine, unspecified, not intractable, without status migrainosus; N18.9 Chronic kidney disease, unspecified

== ENCOUNTER → 2025-09-26 09:56 | Outpatient (BNVA) | payer OTHER, SELFPAY ==
--- OUTSIDE RECORDS SUMMARY | 2025-09-20 23:59 | XMS_ITS | Continuity of Care Document ---
Author Organization [facility] Address [address] [place] [address]- Care Team Providers Care Janitor Head Name Role Phone Manny Chang MD, [facility] Date(s): 08/21/25 - 09/20/25 [facility] [address], [place] [phone] Encounter Type: Triage Allergies, Adverse Reactions, Alerts Substance Criticality Severity Reaction Reaction Severity Status penicillin Active Nyquil Cold Medicine Active Immunizations Given and Recorded Vaccine Date Status Refusal Reason pneumococcal 20-valent conjugate vaccine 04/25/24 Given tetanus/diphtheria/pertussis, acel(Tdap) 09/24/23 Given influenza virus vaccine, inactivated 09/24/23 Give n influenza virus vaccine, inactivated 12/23/20 Give n influenza virus vaccine, inactivated 11/18/17 Give n influenza virus vaccine, inactivated 10/27/16 Give n SARS-CoV-2 (COVID-19) mRNA BNT-162b2 vac 02/21/21 Given Medications acetaminophen 500 mg oral tablet 2 tablet = 1,000 mg, By Mouth, Every 8 hours, PRN as needed for fever, For osteoarthritis, # 540 tablet, 0 Refills, Maintenance, 06/27/25 10:06:00 AM EDT, Tablet, [facility] #[id number], Partial fill upon patient request if the prescription is for a schedule II opioid drug., 165, cm, 06/27/25 9:29:00 EDT, Height, 95.5, kg, 06/14/25 13:02:00 EDT, Dry Weight Start Date: 06/27/25 Status: Ordered Medication Dispense Status: Completed Quantity: 540.0 Unit: tablet Total Allowed Fills: 1 Fills Dispensed: 0 atorvastatin 40 mg oral tablet See Instructions, TAKE 1 TABLET BY MOUTH ONCE DAILY, # 90 tablet, 1 Refills, Maintenance, 08/07/25 10:42:00 AM EDT, [facility][id number], 163, cm, 07/30/25 13:49:00 EDT, Height, 98.2, kg, 07/27/25 12:29:00 EDT, Dry Weight Start Date: 08/07/25 Status: Ordered Medication Dispense Status: Completed Quantity: 90.0 Unit: tablet Total Allowed Fills: 2 Fills Dispensed: 0 benztropine 1 mg oral tablet TAKE 1 TABLET BY MOUTH two (2) times a day Start Date: 05/25/25 Status: Ordered Medication Dispense Status: Completed Total Allowed Fills: 1 Fills Dispensed: 0 Bladder Pads -Poise #5 Bladder Pads -Poise #5, See Instructions, # 120 each, Refills 11, Tot. Refills 11, Maintenance, Dx:urinary incontinence R39.81 Quantity per day: 4 Duration: Lifetime, 01/25/24 3:56:00 PM EDT, Compound Start Date: 01/25/24 Status: Ordered Medication Dispense Status: Completed Quantity: 120.0 Unit: each Total Allowed Fills: 12 Fills Dispensed: 0 capsaicin 0.025% topical cream See Instructions, APPLY TO THE AFFECTED AREA TOPICALLY 3 (THREE) TIMES A DAY, # 60 Gm, 3 Refills, Maintenance, 03/14/25 9:01:00 PM EDT, [facility], 30, APPLY TO THE AFFECTED AREA TOPICALLY 3 (THREE) TIMES A DAY, 163, cm, 02/01/25 7:59:00 EDT, Height, 104.4, kg, 07/10/23 7:01:00 EDT, Dry Weight Start Date: 03/14/25 Status: Ordered Medication Dispense Status: Completed Quantity: 60.0 Unit: g Total Allowed Fills: 1 Fills Dispensed: 0 Commode Commode, See Instructions, # 1 each, Refills 0, Tot. Refills 0, Maintenance, Use as directed dx. Urinary Incontinence (R32) , Decreased Mobility (Z74.0) duration: lifetime, 01/25/24 3:58:00 PM EDT, Supply Start Date: 01/25/24 Status: Ordered Medication Dispense Status: Completed Quantity: 1.0 Unit: each Total Allowed Fills: 1 Fills Dispensed: 0 diclofenac 1% topical gel 1 application, Topically, 4 times a day, # 100 Gm, 3 Refills, Maintenance, 05/25/25 3:06:00 PM EDT, Gel, [facility] [id number], Partial fill upon patient request if the prescription is for a schedule II opioid drug., 163, cm, 05/25/25 12:51:00 EDT, Height, 104.4, kg, 07/10/23 7:01:00 EDT, Dry Weight Start Date: 05/25/25 Stop Date: 05/20/26 Status: Ordered Medication Dispense Status: Completed Quantity: 100.0 Unit: g Total Allowed Fills: 4 Fills Dispensed: 0 Disposable bed pads Disposable bed pads, See Instructions, # 90 each, Refills 11, Tot. Refills 11, Maintenance, Use as directed 3 per day dx. Urinary Incontinence (R32) duration: lifetime, 01/25/24 3:56:00 PM EDT, Supply Start Date: 01/25/24 Status: Ordered Medication Dispense Status: Completed Quantity: 90.0 Unit: each Total Allowed Fills: 12 Fills Dispensed: 0 duloxetine 30 mg oral enteric coated capsule See Instructions, TAKE 1 CAPSULE BY MOUTH ONCE DAILY, # 90 capsule, 1 Refills, Maintenance, 08/21/25 7:46:00 AM EDT, [facility] [id number], 163, cm, 07/30/25 13:49:00 EDT, Height, 98.2, kg, 07/27/25 12:29:00 EDT, Dry Weight Start Date: 08/21/25 Status: Ordered Medication Dispense Status: Completed Quantity: 90.0 Unit: capsule Total Allowed Fills: 2 Fills Dispensed: 0 Freestyle Lite Lancets See Instructions, # 50 each, Refills 11, Tot. Refills 11, Maintenance, dx dm type 2 - e11.9 check bs 1 x per day, 01/05/25 1:03:00 PM EST, Supply, 163, cm, 10/18/24 16:11:00 EST, Height, 104.4, kg, 07/10/23 7:01:00 EDT, Dry Weight Start Date: 01/05/25 Status: Ordered Medication Dispense Status: Completed Quantity: 50.0 Unit: each Total Allowed Fills: 12 Fills Dispensed: 0 Freestyle Lite Monitor See Instructions, # 1 each, Maintenance, dx dm type 2 - e11.9 check bs 1 x per day, 10/16/21 3:19:00PM EST, Supply, 162.5, cm, 10/15/21 13:33:00 EST, Height Start Date: 10/16/21 Status: Ordered Medication Dispense Status: Completed Quantity: 1.0 Unit: each Total Allowed Fills: 1 Fills Dispensed: 0 FreeStyle Lite Strips FreeStyle Lite Strips, See Instructions, # 50 Unknown, 11 Refills, Maintenance, USE TO TEST FINGER STICK BLOOD SUGAR 1 TIME PER DAY, 12/13/23 4:00:00 PM EST, 163, cm, 09/24/23 9:57:00 EST, Height, 104.4, kg, 07/10/23 7:01:00 EDT, Dry Weight Start Date: 12/13/23 Status: Ordered Medication Dispense Status: Completed Quantity: 50.0 Unit: Unknown Total Allowed Fills: 1 Fills Dispensed: 0 Freestyle Lite Test Strips See Instructions, # 50 each, Refills 5, Tot. Refills 5, Maintenance, dx dm type 2 - e11.9 check bs 1 x per day, 01/08/25 3:26:00 PM EST, Supply, 163, cm, 10/18/24 16:11:00 EST, Height, 104.4, kg, 07/10/23 7:01:00 EDT, Dry Weight Start Date: 01/08/25 Status: Ordered Medication Dispense Status: Completed Quantity: 50.0 Unit: each Total Allowed Fills: 6 Fills Dispensed: 0 Home Blood Pressure Monitor See Instructions, # 1 each, Refills 0, Tot. Refills 0, Maintenance, Measure BP when calm, resting, once a day and maintain BP log, 04/25/24 1:53:00 PM EDT, Supply, 163, cm, 04/25/24 9:53:00 EDT, Height, 104.4, kg, 07/10/23 7:01:00 EDT, Dry Weight Start Date: 04/25/24 Status: Ordered Medication Dispense Status: Completed Quantity: 1.0 Unit: each Total Allowed Fills: 1 Fills Dispensed: 0 Inject Ease Lancets 28 gauge Inject Ease Lancets 28 gauge, See Instructions, # 100 Unknown, 0 Refills, uttfsb 1 TIME PER DAY, 162.5, cm, 10/15/21 13:33:00 EST, Height Start Date: 03/14/22 Status: Ordered Medication Dispense Status: Completed Quantity: 100.0 Unit: Unknown Total Allowed Fills: 1 Fills Dispensed: 0 Inject Ease Lancets 28 gauge Inject Ease Lancets 28 gauge, See Instructions, # 100 Unknown, 3 Refills, USE TO TEST FINGER STICK BLOOD SUGAR 1 TIME PER DAY, 162.5, cm, 10/15/21 13:33:00 EST, Height Start Date: 07/01/22 Status: Ordered Medication Dispense Status: Completed Quantity: 100.0 Unit: Unknown Total Allowed Fills: 1 Fills Dispensed: 0 Invega Sustenna 156 mg/mL intramuscular suspension, extended release INJECT THE CONTENT OF 1 syringe UNDER THE MUSCLE ONCE EVERY 4 WEEKS Start Date: 05/25/25 Status: Ordered Medication Dispense Status: Completed Total Allowed Fills: 1 Fills Dispensed: 0 Left Knee Brace Left Knee Brace, See Instructions, # 1 each, Refills 0, Tot. Refills 0, Maintenance, Use as indicated Dx: Left knee OA (M17.12); Risk for falls (Z91.81); impaired mobility (Z74.09) Duration: Lifetime., 12/09/22 2:57:00 PM EST, Supply Start Date: 12/09/22 Status: Ordered Medication Dispense Status: Completed Quantity: 1.0 Unit: each Total Allowed Fills: 1 Fills Dispensed: 0 levothyroxine 0.1 mg oral tablet 1 tablet = 100 mcg, By Mouth, Daily, as directed. with plenty of water avoid antacids, calcium, or iron for at least 4 hrs before or 4 hrs after. Dose change from 0.112 --> 0.1, # 90 tablet, 1 Refills, Maintenance, 05/17/25 4:10:00 PM EDT, Tablet, [facility] [place] - [id number], Dose change from 0.112 --> 0.100 for TSH of 0.239, 163, cm, 02/01/25 7:59:00 EDT, Height, 104.4, kg, 07/10/23 7:01:00 EDT, Dry Weight Start Date: 05/17/25 Status: Ordered Medication Dispense Status: Completed Quantity: 90.0 Unit: tablet Total Allowed Fills: 2 Fills Dispensed: 0 lidocaine 4% topical film See Instructions, Topically Daily do not leave patch on for more than 12 hours at a time, # 30 each, 11 Refills, Acute 07/06/26 9:00:00 AM EDT, 07/07/25 2:14:00 PM EDT, [facility] #[id number], Partial fill upon patient request if the prescription is for a schedule II opioid drug., Topically Daily; do not leave patch on for more than 12 hours at a time, 165, cm, 06/27/25 9:29:00 EDT, Height, 95.5, kg, 06/14/25 13:02:00 EDT, Dry Weight Start Date: 07/07/25 Stop Date: 07/06/26 Status: Ordered Medication Dispense Status: Completed Quantity: 30.0 Unit: each Total Allowed Fills: 12 Fills Dispensed: 0 losartan 25 mg oral tablet 25 mg, 1, tablet, By Mouth, Daily, # 90 tablet, Refills 1, Tot. Refills 1, Maintenance, 06/18/25 10:47:00 AM EDT, Route to Pharmacy Electronically, [facility] #[id number], Partial fill upon patient request if the prescription is for a schedule II opioid drug., 165, cm, 06/14/25 12:55:00 EDT, Height, 95.5, kg, 06/14/25 13:02:00 EDT, Dry Weight Start Date: 06/18/25 Stop Date: 12/15/25 Status: Ordered Medication Dispense Status: Completed Quantity: 90.0 Unit: tablet Total Allowed Fills: 2 Fills Dispensed: 0 Metamucil 3.4 gm/5.2 gm oral powder for reconstitution = 1.7 Gm, By Mouth, Daily, PRN as needed for constipation, dissolve in 8 oz of fluid, # 570 Gm, 1 Refills, Maintenance, 02/01/25 9:01:00 AM EDT, REC Powder, [facility] [id number], Partial fill upon patient request if the prescription is for a schedule II opioid drug., 163, cm, 02/01/25 7:59:00 EDT, Height, 104.4, kg, 07/10/23 7:01:00 EDT, Dry Weight Start Date: 02/01/25 Stop Date: 04/02/25 Status: Ordered Medication Dispense Status: Completed Quantity: 570.0 Unit: g Total Allowed Fills: 2 Fills Dispensed: 0 metFORMIN 500 mg oral tablet, extended release See Instructions, TAKE 2 TABLETS BY MOUTH two (2) times a day (WITH BREAKFAST AND DINNER), # 120 tablet, 6 Refills, Maintenance, 07/13/25 1:15:00 PM EDT, [facility] [id number],165, cm, 06/27/25 9:29:00 EDT, Height, 95.5, kg, 06/14/25 13:02:00 EDT, Dry Weight Start Date: 07/13/25 Status: Ordered Medication Dispense Status: Completed Quantity: 120.0 Unit: tablet Total Allowed Fills: 7 Fills Dispensed: 0 MiraLax oral powder for reconstitution = 17 Gm, By Mouth, Daily, PRN Constipation, dissolve in 4 to 8 oz of beverage, # 255 Gm, 0 Refills,Maintenance, 03/14/25 1:59:00 PM EDT, REC Powder, [facility] [id number], Partial fill upon patient request if the prescription is for a schedule II opioid drug., 17 Gm By MouthDaily,x30 days,PRN:Constipation,Instr:dissolve in 4 to 8 oz of beverage, 163, cm, 02/01/25 7:59:00 EDT, Height, 104.4, kg, 07/10/23 7:01:00 EDT, Dry Weight Start Date: 03/14/25 Stop Date: 04/13/25 Status: Ordered Medication Dispense Status: Completed Quantity: 255.0 Unit: g Total Allowed Fills: 1 Fills Dispensed: 0 Indications: Constipation, unspecified; panty liners panty liners, See Instructions, # 20 each, Refills 0, Tot. Refills 0, Maintenance, panty liners, 12/17/23 5:24:00 PM EST, Supply, 163, cm, 12/17/23 16:00:00 EST, Height, 104.4, kg, 07/10/23 7:01:00 EDT, Dry Weight Start Date: 12/17/23 Status: Ordered Medication Dispense Status: Completed Quantity: 20.0 Unit: each Total Allowed Fills: 1 Fills Dispensed: 0 polyethylene glycol 3350 oral powder for reconstitution See Instructions, DISSOLVE 17grams IN 4 TO 8 ounces OF beverage TAKE BY MOUTH ONCE DAILY NEEDED FOR CONSTIPATION, # 238 Gm, 3 Refills, Maintenance, 05/30/25 1:10:00 PM EDT, [facility], 15, DISSOLVE 17grams IN 4 TO 8 ounces OF beverage TAKE BY MOUTH ONCE DAILY NEEDED FOR CONSTIPATION, 163,cm, 05/25/25 12:51:00 EDT, Height, 104.4, kg, 07/10/23 7:01:00 EDT, Dry Weight Start Date: 05/30/25 Status: Ordered Medication Dispense Status: Completed Quantity: 238.0 Unit: g Total Allowed Fills: 4 Fills Dispensed: 0 Raised Toilet Seat Raised Toilet Seat, See Instructions, # 1 each, Refills 0, Tot. Refills 0, Maintenance, Dx: Left knee pain (M25.562) Right Knee pain (M25.561) Impaired mobility (Z74.0) Height- 162.50 cm Weight - 111kg Duration: Lifetime., 07/31/22 11:40:00 AM EDT, Supply Start Date: 07/31/22 Status: Ordered Medication Dispense Status: Completed Quantity: 1.0 Unit: each Total Allowed Fills: 1 Fills Dispensed: 0 Rollator Walker with Seat Rollator Walker with Seat, See Instructions, # 1 each, Refills 0, Tot. Refills 0, Maintenance, Use as directed Dx: Left knee OA (M17.12); Risk for falls (Z91.81); impaired mobility (Z74.09) Ht: 162.50 cm; Wt: 109 kg Duration: Lifetime., 12/09/22 3:06:00 PM EST, Supply Start Date: 12/09/22 Status: Ordered Medication Dispense Status: Completed Quantity: 1.0 Unit: each Total Allowed Fills: 1 Fills Dispensed: 0 Shower Bar See Instructions, # 1 each, Refills 0, Tot. Refills 0, Maintenance, use as directed during bathing for safety Duration: Lifetime DX: R53.1, 08/30/24 4:50:00 PM EDT, Supply Start Date: 08/30/24 Status: Ordered Medication Dispense Status: Completed Quantity: 1.0 Unit: each Total Allowed Fills: 1 Fills Dispensed: 0 topiramate 50 mg oral tablet 0 Refills, Maintenance, 05/25/25 1:50:00 PM EDT, Partial fill upon patient request if the prescription is for a schedule II opioid drug. Start Date: 05/25/25 Status: Ordered Medication Dispense Status: Completed Total Allowed Fills: 1 Fills Dispensed: 0 Vitamin D3 2000 intl units oral tablet 1 tablet = 50 mcg, By Mouth, Daily, # 90 tablet, 1 Refills, Maintenance, 05/18/25 4:26:00 PM EDT, [place], [place] - [id number], 163, cm, 02/01/25 7:59:00 EDT, Height, 104.4, kg, 07/10/23 7:01:00 EDT, Dry Weight Start Date: 05/18/25 Stop Date: 11/14/25 Status: Ordered Medication Dispense Status: Completed Quantity: 90.0 Unit: tablet Total Allowed Fills: 2 Fills Dispensed: 0 wipes for urinary incontinence wipes for urinary incontinence, See Instructions, # 1 each, Refills 0, Tot. Refills 0, Maintenance,wipes for urinary incontinence, 12/17/23 5:23:00 PM EST, Supply, 163, cm, 12/17/23 16:00:00 EST, Height, 104.4, kg, 07/10/23 7:01:00 EDT, Dry Weight Start Date: 12/17/23 Status: Ordered Medication Dispense Status: Completed Quantity: 1.0 Unit: each Total Allowed Fills: 1 Fills Dispensed: 0 Problem List Condition Confirmation Course Effective Dates Status H ealth Status Informant Bipolar disorder Confirmed Active Chronic kidney disease Confirmed Active Diabetes Confirmed Active Hypothyroidism Confirmed Active Impaired glucose tolerance Confirmed Active Low back pain Confirmed Active Knee pain Confirmed Active *PAYAL/ELIDA/Daryl Bills-[phone] /Luis@[facility].or / Health longterm, active care coordination Confirmed 03/09/18 Active Severe obesity (BMI 35.0-39.9) with comorbidity Confirmed Active Urinary incontinence Confirmed Active Vitamin D deficiency Confirmed Active Social History Social History Type Response Tobacco Use: Trion. Sexual Orientation Self described orien tation: ; Straight or heterosexual Sex Female Sex Representation Female (finding) Patient Care team information Care Team Personnel Name: Bg Lake MD Position: [facility] Resident Member Role: PCP Address: [address] [place] [address] Telecom: Care Team Related Persons Name: SALLIE RYAN Name: JU MCCLAIN Name: FLORIDA KAUFFMAN Insurance Providers Guarantor name: SHOLA MCCLAIN Health Plan Information #: 1 Payer: [employer] Payer Identifier: LATRICE Member Number: [id number] Group Number: [id number] Subscriber Identifier: NA Relationship to Subscriber: self Coverage Type: Medicare Managed Care (Includes Medicare Advantage Plans) Coverage Verification Date: LATRICE Telecom: LATRICE Address:
== END ==
LOC: CF 11:38
PROVIDERS: PCP Student in an Organized Health Care Education/Training Program; Visit Provider Student in an Organized Health Care Education/Training Program
DX: Z71.2 Person consulting for explanation of examination or test findings (principal); N18.9 Chronic kidney disease, unspecified; G62.9 Polyneuropathy, unspecified; E11.9 Type 2 diabetes mellitus without complications; F20.9 Schizophrenia, unspecified; F31.9 Bipolar disorder, unspecified; G43.909 Migraine, unspecified, not intractable, without status migrainosus; Z79.899 Other long term (current) drug therapy
CPT/HCPCS: 99212